=== PATIENT | female | born 1935 | race Caucasian/White ===

== ENCOUNTER 2021-08-23 12:31 | Inpatient (IN) | payer OTHER ==
[2021-08-23] MEDS ORDERED: NA CHLORIDE 0.9% 1,000 ML ONE (13:30)
--- NOTE | 2021-08-23 14:09 | RAD REPORT ---
EXAM DESCRIPTION: CT - Head Brain Wo Cont - 08/23/2021 2:03 pm CLINICAL HISTORY: CONFUSED COMPARISON: No comparisons TECHNIQUE: All CT scans are performed using dose optimization technique as appropriate and may inclu de automated exposure control or mA/KV adjustment according to patient size. FINDINGS: No intracranial hemorrhage, hydrocephalus or extra-axial fluid collection.No areas of brai n edema or evidence of midline shift. Age advanced cerebral atrophy as well as moderate chronic small vessel ischemic changes. Remote right cerebellar infarct. Mild right maxillary sinus thickening. The calvarium is intact. IMPRESSION: No acute intracranial abnormality.
[2021-08-23] MEDS ORDERED: CEFTRIAXONE 1000 MG/VIAL ONE (14:15)
--- NOTE | 2021-08-23 14:28 | RAD REPORT ---
EXAM DESCRIPTION: RAD - Chest Single View - 08/23/2021 2:12 pm CLINICAL HISTORY: CONGESTION COMPARISON: CHEST SINGLE VIEW dated 09/08/2013; CHEST PA AND LAT 2 VIEW dated 01/24/2003 FINDINGS: Lines: None. Lungs: No evidence of edema or pneumonia. Pleural: No significant pleural effusions or pneumothorax. Cardiac: The heart size is within normal limits. Bones: No acute fractures. Other: IMPRESSION: No acute cardiopulmonary disease.
[2021-08-23 16:27] LABS: Absolute Lymphocytes (CBC) 0.3 K/uL (0.7-4.9); Basophils % 0.2 % (0-1.3); Hematocrit 42.3 % (36.0-45.0); Lymphocytes % 6.6 % (15.3-44.8); RBC Red Blood Cell Count 4.96 M/uL (3.86-4.86)
[2021-08-23] MEDS ORDERED: METHYLPREDNISOLONE 125 MG INJ ONE (16:33)
[2021-08-23] MEDS ORDERED: AZITHROMYCIN 500 MG INJ IVPB ONE (16:34)
[2021-08-23 16:46] LABS: Protime INR 1.02
[2021-08-23 16:56] LABS: ALT/SGPT 22 U/L (12-78); AST/SGOT 28 U/L (15-37); Albumin 3.2 g/dL (3.4-5.0); Alkaline Phosphatase 114 U/L (45-117); Amylase 65 U/L (25-115); BUN Blood Urea Nitrogen 17 mg/dL (7-18); Bicarbonate 23 mmol/L (21-32); Bilirubin Direct 0.1 mg/dL (0-0.2); Bilirubin Total 0.3 mg/dL (0.2-1.0); Creatine Phosphokinase 28 U/L (26-192); Glucose Level 172 mg/dL (74-106); Lipase 39 U/L (73-393); Magnesium 2.5 mg/dL (1.8-2.4); NT PRO-BNP 421 pg/mL (<450); Potassium 4.1 mmol/L (3.5-5.1); Sodium Level 145 mmol/L (136-145); Troponin (Emerg Dept Use Only) < 0.02 ng/mL (0.0-0.045)
[2021-08-23 16:59] LABS: CKMB Creatine Kinase MB < 1.0 ng/mL (1.0-3.6)
--- NOTE | 2021-08-23 17:40 | ER ---
Nurse's Notes [facility] Name: Raymond Stern Age: 86 yrs Sex: Female : 1935 Arrival Date: 08/23/2021 Time: 12:36 Bed 5 Private MD: Diagnosis: Altered mental status, unspecified;Dehydration-and COVID 19 Presentation: 08/23 12:49 Chief complaint: Patient's son or daughter states: [facility] stated that around vg1 August 20, patient has not ate or drank much and has also been coughing and weakness. States is unsure if pt has had NVD. [facility] states pt has dementia but states 'it has gotten worse'. States when you ask questions to pt, pt 'will just stare at you'. Coronavirus screen: Vaccine status: Granddaughter is unsure of vaccine status. Ebola Screen: Patient negative for fever greater than or equal to 101.5 degrees Fahrenheit, and additional compatible Ebola Virus Disease symptoms. Initial Sepsis Screen: Does the patient meet any 2 criteria? RR > 20 per min. Altered Mental Status. Yes. Risk Assessment: Do you want to hurt yourself or someone else? Patient reports no desire to harm self or others. Onset of symptoms was August 20, 2021. 12:49 Method Of Arrival: Wheelchair vg1 12:49 Acuity: LOIDA 3 vg1 22:00 No acute neurological deficit is noted. Initial Sepsis Screen: Does the patient have a kc4 suspected source of infection? No. Patient's initial sepsis screen is negative. 22:15 Note Phone report was given to Ju MEDINA. Per RN need to consult ER MD about pts BP. kc4 MD Ortega consulted at this time he does not want to seek out any Measures to change bp. Per MD pts bp stable to go to floor. 23:02 Note House sup notified of MDs decision to admit pt without medicating pt for bp. Pt kc4 stable to go to floor. House sup discussed with floor RN. Pt ready for transport. 23:05 Pre-hospital glucose is not applicable to this patient. [facility] Triage Assessment: 12:57 The onset of the patients symptoms was more than six hours ago. General: Appears in no vg1 apparent distress. slender, Behavior is quiet. Pain: Unable to use pain scale. pt will not answer question. Neuro: Level of Consciousness is awake, lethargic, Oriented to pt was able to state 'July 04 unable to recall year or place. Ip Litigation Paralegal are weak bilaterally Facial symmetry appears normal. 22:00 Neuro: Level of Consciousness is awake, confused, Oriented to pt has hx of dementia . kc4 Ip Litigation Paralegal are weak bilaterally Facial symmetry appears normal, Reports. Historical: - Allergies: 16:43 No Known Allergies; jl7 - Home Meds: 20:57 alendronate 70 mg oral tab 1 tab once wkly [Active]; rivastigmine tartrate 1.5 mg oral kc4 cap 1 cap 2 times per day [Active]; megestrol 20 mg Oral tab 1 tab 2 times per day [Active]; memantine 10 mg oral tab 1 tab 2 times per day [Active]; biotin 10,000 mcg oral cap daily [Active]; montelukast 10 mg oral tab 1 tab once daily [Active]; - PMHx: 12:57 Dementia; Hypertensive disorder; vg1 - PSHx: 12:57 Left Hip; vg1 - Immunization history:: Adult Immunizations family member unsure of vaccination. - Social history:: Smoking status: unknown Patient/guardian denies using alcohol, street drugs, The patient lives with family. - Family history:: not pertinent. Screenin:00 Abuse screen: Denies threats or abuse. Denies injuries from another. Nutritional bp screening: No deficits noted. Tuberculosis screening: No symptoms or risk factors identified. Fall Risk None identified. Assessment: 13:00 VAN Scoring: Arm Drift: Patients demonstrates NO arm weakness. Patient is VAN Negative. bp The patient has not been NPO before screening. The patient is not alert and/or unable to follow commands. The patient does not exhibit slurred or garbled speech. The patient is not exhibiting difficulty speaking. The patient does not exhibit difficulty understanding words. The patient is able to swallow own secretions with no drooling or need for suction. Patient tolerated one teaspoon of water. No drooling, immediate coughing, gurgling, or clearing of the throat was noted. The patient tolerated 90mL of water. No drooling, immediate coughing, gurgling, or clearing of the throat was noted. The patient passed the bedside swallow screening. Oral medications may be given as ordered. Contact Physician for further diet orders. Provider notified of bedside swallow screening results: Zofia Locke MD. T-PA (Activase) Screening: Contraindications: Patient reports onset of signs and symptoms of stroke greater than 6 hours ago: No. General: SEE TRIAGE NOTE. 15:00 Reassessment: PHLEBOTOMY AND NURSING UNABLE TO OBTAIN BLOOD SPECIMEN. MD NOTIFIED. bp Vital Signs: 12:49 BP 191 / 106; Pulse 93; Resp 24; Temp 98.7(O); Pulse Ox 97% on R/A; vg1 15:00 BP 199 / 90; Pulse 89; Resp 22; Pulse Ox 97% ; bp 16:42 BP 178 / 94; Pulse 85; Resp 22; Pulse Ox 99% ; jl7 21:03 BP 194 / 74; Pulse 78; Resp 20; Temp 98.7(O); Pulse Ox 99% on R/A; Pain 0/10; kc4 22:30 BP 194 / 94; Pulse 74; Resp 18; Temp 98.7(O); Pulse Ox 99% on R/A; kc4 NIH Stroke Scale Scores: 13:00 NIHSS Score: 2 bp ED Course: 12:36 Patient arrived in ED. ds1 12:57 Triage completed. vg1 12:57 Arm band placed on. vg1 13:13 Zofia Locke MD is Attending Physician. ma2 13:28 Song Enrique, RN is Primary Nurse. bp 14:03 CT Head Brain wo Cont In Process Unspecified. EDMS 14:04 Patient has correct armband on for positive identification. Placed in gown. Bed in low mh5 position. Call light in reach. Side rails up X2. Warm blanket given. hall monitor on. Pulse ox on. NIBP on. 14:04 EKG done, by ED staff, reviewed by Zofia Locke MD. mh5 14:12 XRAY Chest (1 view) In Process Unspecified. EDMS 14:13 Inserted saline lock: 22 gauge in right forearm, using aseptic technique. jl7 16:33 PTT, Activated Partial Thromb Sent. mh5 16:33 Lipase Sent. mh5 16:33 Creatine Phosphokinase Sent. mh5 16:34 CKMB Creatine Kinase MB Sent. mh5 16:34 Amylase Sent. mh5 16:34 Lactate Sent. mh5 16:34 Procalcitonin Sent. mh5 16:35 Initial lab(s) drawn, by me, sent to lab. 5 17:39 Ace Gavin DO is Hospitalizing Provider. ma2 19:08 Blood Culture Adult (2) Sent. jl7 21:10 Urine Culture Sent. kc4 21:10 COVID-19/FLU A+B/RSV (Document "Date of Onset" if Symptomatic) Sent. kc4 22:00 No provider procedures requiring assistance completed. kc4 23:07 Patient admitted, IV remains in place. kc4 Administered Medications: 16:00 Drug: NS 0.9% 1000 ml Route: IV; Rate: 1 bolus; Site: right forearm; bp 21:12 Follow up: Response: No adverse reaction [facility] 16:00 Drug: Rocephin (cefTRIAXone) 1 grams Route: IV; Rate: calculated rate; Site: right bp forearm; 16:00 Drug: MethylPrednisoLONE 125 mg Route: IVP; Site: right forearm; bp 16:47 Follow up: Response: No adverse reaction bp 21:10 Follow up: Response: No adverse reaction [facility] 16:00 Drug: AZITHromycin 500 mg Route: IVPB; Infused Over: 1 hrs; Site: right forearm; bp 21:10 Follow up: Response: No adverse reaction [facility] Outcome: 17:39 Decision to Hospitalize by Provider. ma2 23:05 Admitted to ICU accompanied by mary, via stretcher, room 7, with chart, Report called [facility] to Robb [facility]INA 23:05 Condition: stable 23:05 Instructed on the need for admit. 23:08 Patient left the ED. [facility] NIH Stroke Scale - NIH Stroke Score Date: 08/23/2021 Time: 13:00 Total Score = 2 1a. Level of Consciousness (LOC) - 0(Alert) 1b. Level of Consciousness (LOC) (Month \\T\\ Age) - 1(One) 1c. LOC Commands (Open \\T\\ Closes Eyes/Repairer Art Objects) - 0(Both) 2. Best Gaze (Lateral Gaze Paresis) - 0(Normal) 3. Visual Field Loss - 0(No visual loss) 4. Facial Palsy - 0(Normal) 5a. Left Arm: Motor (10-second hold) - 0(No drift) 5b. Right Arm: Motor (10-second hold) - 0(No drift) 6a. Left Leg: Motor (5-second hold - always test supine) - 0(No drift) 6b. Right Leg: Motor (5-second hold - always test supine) - 0(No drift) 7. Limb Ataxia (finger/nose \\T\\ heel/macario - test with eyes open) - 0(Absent) 8. Sensory Loss (pinprick arms/legs/face) - 0(Normal) 9. Best Language: Aphasia (description/naming/reading) - 0(No aphasia) 10. Dysarthria (speech clarity - read or repeat words) - 1(Mild to Moderate) 11. Extinction and Inattention (visual/tactile/auditory/spatial/personal) - 0(No abnormality) Initials: bp Signatures: Dispatcher [employer] EDKatty Dempsey dsMarta Jones 5 Shilo Corcoran RN RN elaine7 Song Enrique RN RN bp Zofia Locke MD MD ma2 Padma Bartholomew RN RN vg1 Melinda Villasenor kc4 Corrections: (The following items were deleted from the chart) 21:01 12:57 Home Meds: Unable to obtain; vg1 kc4
--- NOTE | 2021-08-23 17:40 | EDPHYS ---
Physician Documentation [facility] Name: Raymond Stern Age: 86 yrs Sex: Female : 1935 Arrival Date: 08/23/2021 Time: 12:36 Bed 5 Private MD: ED Physician Zofia Locke HPI: 08/23 13:39 This 86 yrs old Female presents to ER via Wheelchair with complaints of ma2 Weakness, Altered Mental Status. 13:39 Onset: The symptoms/episode began/occurred gradually, 3 day(s) ago. Associated signs ma2 and symptoms: Pertinent positives: altered mental status, fever, Pertinent negatives: neck stiffness, paresthesias, seizure, syncope, loss of vision, weakness. Severity of symptoms: At their worst the symptoms were moderate in the emergency department the symptoms are unchanged. The patient has experienced similar episodes in the past. also has cough. Historical: - Allergies: 16:43 No Known Allergies; jl7 - Home Meds: 20:57 alendronate 70 mg oral tab 1 tab once wkly [Active]; rivastigmine tartrate 1.5 mg oral kc4 cap 1 cap 2 times per day [Active]; megestrol 20 mg Oral tab 1 tab 2 times per day [Active]; memantine 10 mg oral tab 1 tab 2 times per day [Active]; biotin 10,000 mcg oral cap daily [Active]; montelukast 10 mg oral tab 1 tab once daily [Active]; - PMHx: 12:57 Dementia; Hypertensive disorder; vg1 - PSHx: 12:57 Left Hip; vg1 - Immunization history:: Adult Immunizations family member unsure of vaccination. - Social history:: Smoking status: unknown Patient/guardian denies using alcohol, street drugs, The patient lives with family. - Family history:: not pertinent. ROS: 13:39 Constitutional: Negative for fever, chills, and weight loss. ma2 13:39 All other systems are negative. Exam: 13:39 Constitutional: This is a well developed, well nourished patient who is awake, alert, ma2 and in no acute distress. Head/Face: Normocephalic, atraumatic. Eyes: Pupils equal round and reactive to light, extra-ocular motions intact. Lids and lashes normal. Conjunctiva and sclera are non-icteric and not injected. Cornea within normal limits. Periorbital areas with no swelling, redness, or edema. ENT: Nares patent. No nasal discharge, no septal abnormalities noted. Tympanic membranes are normal and external auditory canals are clear. Oropharynx with no redness, swelling, or masses, exudates, or evidence of obstruction, uvula midline. Mucous membranes moist. Neck: Trachea midline, no thyromegaly or masses palpated, and no cervical lymphadenopathy. Supple, full range of motion without nuchal rigidity, or vertebral point tenderness. No Meningismus. Chest/axilla: Normal chest wall appearance and motion. Nontender with no deformity. No lesions are appreciated. Cardiovascular: Regular rate and rhythm with a normal S1 and S2. No gallops, murmurs, or rubs. Normal PMI, no JVD. No pulse deficits. Respiratory: Lungs have equal breath sounds bilaterally, clear to auscultation and percussion. No rales, rhonchi or wheezes noted. No increased work of breathing, no retractions or nasal flaring. Abdomen/GI: Soft, non-tender, with normal bowel sounds. No distension or tympany. No guarding or rebound. No evidence of tenderness throughout. Skin: Warm, dry with normal turgor. Normal color with no rashes, no lesions, and no evidence of cellulitis. MS/ Extremity: Pulses equal, no cyanosis. Neurovascular intact. Full, normal range of motion. Neuro: Awake however she is sleepy and confused . Cranial nerves II-XII grossly intact. Motor strength 5/5 in all extremities. Sensory grossly intact. Cerebellar exam normal. Normal gait. Vital Signs: 12:49 BP 191 / 106; Pulse 93; Resp 24; Temp 98.7(O); Pulse Ox 97% on R/A; vg1 15:00 BP 199 / 90; Pulse 89; Resp 22; Pulse Ox 97% ; bp 16:42 BP 178 / 94; Pulse 85; Resp 22; Pulse Ox 99% ; jl7 21:03 BP 194 / 74; Pulse 78; Resp 20; Temp 98.7(O); Pulse Ox 99% on R/A; Pain 0/10; kc4 22:30 BP 194 / 94; Pulse 74; Resp 18; Temp 98.7(O); Pulse Ox 99% on R/A; kc4 NIH Stroke Scale Scores: 13:00 NIHSS Score: 2 bp MDM: 13:13 Patient medically screened. ma2 13:39 Data reviewed: vital signs, nurses notes. ma2 17:38 Counseling: I had a detailed discussion with the patient and/or guardian regarding: the [facility] historical points, exam findings, and any diagnostic results supporting the discharge/admit diagnosis, the presence of at least one elevated blood pressure reading (>120/80) during this emergency department visit, the need for outpatient follow up. Response to treatment: the patient's symptoms have markedly improved after treatment. 08/23 13:13 Order name: Basic Metabolic Panel; Complete Time: 17:38 tn2 08/23 13:13 Order name: CBC with Diff; Complete Time: 20:42 ma2 08/23 13:13 Order name: LFT's; Complete Time: 17:38 ma2 08/23 13:13 Order name: Magnesium; Complete Time: 17:38 tn2 08/23 13:13 Order name: NT PRO-BNP; Complete Time: 17:38 tn2 08/23 13:13 Order name: PT-INR; Complete Time: 17:38 ma2 08/23 13:13 Order name: Troponin (emerg Dept Use Only); Complete Time: 17:38 ma2 08/23 13:36 Order name: Blood Culture Adult (2) tn2 08/23 13:36 Order name: Lactate; Complete Time: 17:38 ma2 08/23 13:13 Order name: XRAY Chest (1 view); Complete Time: 15:19 tn2 08/23 13:36 Order name: Procalcitonin; Complete Time: 17:38 tn2 08/23 13:36 Order name: Urine Microscopic Only; Complete Time: 20:42 ma2 08/23 13:37 Order name: CT Head Brain wo Cont; Complete Time: 15:19 ma2 08/23 14:12 Order name: Creatine Phosphokinase; Complete Time: 17:38 EDMS 08/23 14:12 Order name: CKMB Creatine Kinase MB; Complete Time: 17:38 EDMS 08/23 14:12 Order name: Amylase; Complete Time: 17:38 EDMS 08/23 14:12 Order name: Lipase; Complete Time: 17:38 EDMS 08/23 14:13 Order name: PTT, Activated Partial Thromb; Complete Time: 17:38 EDMS 08/23 19:18 Order name: COVID-19/FLU A+B/RSV (Document "Date of Onset" if Symptomatic); Complete jl7 Time: 22:25 08/23 20:11 Order name: Urine Dipstick-Ancillary; Complete Time: 20:42 EDMS 08/23 20:24 Order name: CBC Smear Scan; Complete Time: 20:42 EDMS 08/23 20:31 Order name: Urine Culture EDSC 08/23 13:13 Order name: EKG; Complete Time: 13:14 ma2 08/23 13:13 Order name: Cardiac monitoring; Complete Time: 13:36 ma2 08/23 13:13 Order name: EKG - Nurse/Tech; Complete Time: 14:04 ma2 08/23 13:13 Order name: IV Saline Lock; Complete Time: 14:06 ma2 08/23 13:13 Order name: Labs collected and sent; Complete Time: 16:47 ma2 08/23 13:13 Order name: O2 Per Protocol; Complete Time: 13:38 ma2 08/23 13:13 Order name: O2 Sat Monitoring; Complete Time: 13:38 ma2 08/23 13:36 Order name: IV Saline Lock - Large Bore; Complete Time: 14:06 ma2 Administered Medications: 16:00 Drug: NS 0.9% 1000 ml Route: IV; Rate: 1 bolus; Site: right forearm; bp 21:12 Follow up: Response: No adverse reaction kc4 16:00 Drug: Rocephin (cefTRIAXone) 1 grams Route: IV; Rate: calculated rate; Site: right bp forearm; 16:00 Drug: MethylPrednisoLONE 125 mg Route: IVP; Site: right forearm; bp 16:47 Follow up: Response: No adverse reaction bp 21:10 Follow up: Response: No adverse reaction kc4 16:00 Drug: AZITHromycin 500 mg Route: IVPB; Infused Over: 1 hrs; Site: right forearm; bp 21:10 Follow up: Response: No adverse reaction kc4 Disposition Summary: 08/23/21 17:39 Hospitalization Ordered Hospitalization Status: Observation ma2 Provider: Ace Gavni Condition: Stable ma2 Problem: new ma2 Symptoms: are unchanged tn2 Bed/Room Type: Standard [facility] Location: Intensive Care Unit(08/23/21 21:55) mw Room Assignment: 7-(08/23/21 21:55) mw Diagnosis - Altered mental status, unspecified ma2 - Dehydration - and COVID 19 ma2 Forms: - Medication Reconciliation Form ma2 - SBAR form ma2 NIH Stroke Scale - NIH Stroke Score Date: 08/23/2021 Time: 13:00 Total Score = 2 1a. Level of Consciousness (LOC) - 0(Alert) 1b. Level of Consciousness (LOC) (Month \\T\\ Age) - 1(One) 1c. LOC Commands (Open \\T\\ Closes Eyes/Job Superintendent) - 0(Both) 2. Best Gaze (Lateral Gaze Paresis) - 0(Normal) 3. Visual Field Loss - 0(No visual loss) 4. Facial Palsy - 0(Normal) 5a. Left Arm: Motor (10-second hold) - 0(No drift) 5b. Right Arm: Motor (10-second hold) - 0(No drift) 6a. Left Leg: Motor (5-second hold - always test supine) - 0(No drift) 6b. Right Leg: Motor (5-second hold - always test supine) - 0(No drift) 7. Limb Ataxia (finger/nose \\T\\ heel/macario - test with eyes open) - 0(Absent) 8. Sensory Loss (pinprick arms/legs/face) - 0(Normal) 9. Best Language: Aphasia (description/naming/reading) - 0(No aphasia) 10. Dysarthria (speech clarity - read or repeat words) - 1(Mild to Moderate) 11. Extinction and Inattention (visual/tactile/auditory/spatial/personal) - 0(No abnormality) Initials: bp Signatures: Dispatcher [employer] EDMS Karina Owens RN Maurice Duarte MD MD rn Leal, Jahala, RN RN jl7 Song Enrique RN RN bp Alzahri, Mohammad, MD MD ma2 Garcia, Victoria, RN RN Melinda Seymour4 Corrections: (The following items were deleted from the chart) 14:12 13:38 AMYLASE, SERUM+C.LAB.BRZ ordered. EDMS EDMS 14:12 13:38 CREATINE PHOSPHOKINASE+C.LAB.BRZ ordered. EDMS EDMS 14:12 13:38 CKMB+C.LAB.BRZ ordered. EDMS EDMS 14:12 13:38 LIPASE+C.LAB.BRZ ordered. EDMS EDMS 14:13 13:38 PTT, ACTIVATED+COAG.LAB.BRZ ordered. EDMS EDMS 21:01 12:57 Home Meds: Unable to obtain; vg1 kc4 21:55 17:39 Telemetry/MedSurg (Inpatient) ma2 mw :55 17:39 ma2 mw
[2021-08-23 20:11] LABS: Urine Blood 2+ (Negative); Urine Glucose Negative (Negative); Urine Protein 1+ (Negative); Urine Specific Gravity >=1.030 (1.005-1.030); Urine pH 5.5 (5.0-7.0)
[2021-08-23 20:24] LABS: Blood Morphology Comment NOTED (NOT SEEN); Ovalocytes 1+; Platelet Estimate ADEQ; Poikilocytosis 1+; White Blood Cell Scan OK (OK)
[2021-08-23 20:30] LABS: Urine Bacteria >50 /HPF (<20); Urine RBC <5 /HPF (NONE SEEN)
[2021-08-23 21:28] LABS: SARS-COV-2 RT PCR POSITIVE (NEGATIVE)
[2021-08-23] MEDS ORDERED: NA CHLORIDE 0.9% 1,000 ML IV SCH (22:19)
[2021-08-23] MEDS ORDERED: ACETAMINOPHEN 500 MG TAB PO PRN (22:19)
[2021-08-24 05:19] LABS: Absolute Lymphocytes (CBC) 0.2 K/uL (0.7-4.9); Basophils % 2.7 % (0-1.3); Lymphocytes % 6.9 % (15.3-44.8); MPV 9.8 fL (7.6-11.3); RBC Red Blood Cell Count 4.61 M/uL (3.86-4.86)
[2021-08-24 05:33] LABS: Potassium 3.9 mmol/L (3.5-5.1)
[2021-08-24] MEDS ORDERED: HYDRALAZINE HCL 20 MG/ML VIAL IV PRN (06:17)
[2021-08-24] MEDS ORDERED: CEFTRIAXONE 1 GM/NS 50 ML 1 GM/50 ML BAG IV SCH (09:00)
[2021-08-24] MEDS ORDERED: WATER FOR INJ,STERILE 10 ML IM PRN (10:42)
--- NOTE | 2021-08-24 10:53 | P.HP ---
Certification for Inpatient Patient admitted to: Inpatient With expected LOS: >2 Midnights Practitioner: I am a practitioner with admitting privileges, knowledge of patient current condition, hospital course, and medical plan of care. Services: Services provided to patient in accordance with Admission requirements found in Title 42 Section 412.3 of the Code of Federal Regulations Patient History Date of Service: 08/24/21 Primary Care Provider: Traci Reason for admission: Uti, delirium History of Present Illness: Patient is an office patient of [employer]. She has a history of dementia. She has not been eating. The patient was brought in by her daughter for worsening delirum. She was found to have a uti and is covid positive. The patient was admitted to the covid unit. She is breathing well. Somewhat confused. Not combative. She is doing well otherwise. Allergies No Known Allergies Allergy (Verified 08/23/21 22:18) Home Medications: Alendronate Sodium [Fosamax] 70 mg PO SEECOM 08/23/21 Biotin 10,000 mcg PO DAILY 08/23/21 Megestrol Acetate 20 mg PO DAILY 08/23/21 Memantine HCl [Namenda] 10 mg PO BID 08/23/21 Montelukast [Singulair] 10 mg PO DAILY 08/23/21 Rivastigmine 1.5 Mg 1 cap PO DAILY 08/23/21 - Past Medical/Surgical History Diabetic: No -: Dementia -: Htn -: Left Hip Surgery - Social History Smoking Status: Never smoker Alcohol use: No CD- Drugs: No Caffeine use: No Place of Residence: Home Review of Systems is unable to be obtained Physical Examination - Vital Signs Temperature: 97 F Blood Pressure: 166/133 Pulse: 100 Respirations: 15 Pulse Ox (%): 99 - Physical Exam General: Alert, In no apparent distress, Delirious HEENT: Atraumatic, PERRLA, Mucous membr. moist/pink, EOMI, Sclerae nonicteric Neck: Supple, 2+ carotid pulse no bruit, No LAD, Without JVD or thyroid abnormality Respiratory: Clear to auscultation bilaterally, Normal air movement Cardiovascular: Regular rate/rhythm, Normal S1 S2 Gastrointestinal: Normal bowel sounds, No tenderness Musculoskeletal: No tenderness Integumentary: No rashes Neurological: Normal gait, Normal speech, Normal strength at 5/5 x4 extr, Normal tone, Normal affect Lymphatics: No axilla or inguinal lymphadenopathy - Studies Laboratory Data (last 24 hrs) 08/23/21 16:11: PT 11.7, INR 1.02, APTT 31.7 08/23/21 16:11: WBC 5.20, Hgb 13.4, Hct 42.3, Plt Count 189 08/23/21 16:11: Sodium 145, Potassium 4.1, BUN 17, Creatinine 0.78, Glucose 172 H, Magnesium 2.5 H, Total Bilirubin 0.3, AST 28, ALT 22, Alkaline Phosphatase 114, Amylase 65, Lipase 39 L 08/23/21 13:36: APTT Cancelled 08/23/21 13:36: Amylase Cancelled, Lipase Cancelled Assessment and Plan - Problems (Diagnosis) (1) UTI (urinary tract infection) Current Visit: Yes Status: Acute Plan: Patient is doing well. no fevers. Normal wbc. Will start her on oral medications, as she pulls out her iv's. Qualifiers: Urinary tract infection type: acute cystitis (2) COVID-19 Current Visit: Yes Status: Acute Plan: Patient is asymptomatic. Will need to see if there is terminal operations manager inflammatory markers. I have had a lot of patients dementia worsen with covid. (3) Dementia Current Visit: Yes Status: Acute Plan: Patient has not been eating well for nearly 6 months. Will give geodon for agitation prn. Will see if we can get her to eat and if she can work with PT to get her to a chair Qualifiers: Dementia type: Alzheimer's Discharge Plan: Home Plan to discharge in: 24 Hours - Advance Directives Does patient have a Living Will: Yes Does patient have a Durable POA for Healthcare: No - Code Status/Comfort Care Code Status Assessed: Yes Code Status: Do Not Attempt Resuscitat Physician Review: Patient Assessed, Agree with Above Assessment and Plan Critical Care: No Time Spent Managing Pts Care (In Minutes): 50
[2021-08-24] MEDS: ZIPRASIDONE MESYLA 20 MG/VIAL IM PRN (11:35)
[2021-08-24] MEDS: MEMANTINE HCL 10 MG TABLET PO SCH (19:15)
[2021-08-24] MEDS: CIPROFLOXACIN HCL 500 MG TAB PO SCH (19:15)
[2021-08-25] MEDS: CIPROFLOXACIN HCL 500 MG TAB PO SCH ×2 (08:15→19:11)
[2021-08-25] MEDS: MEMANTINE HCL 10 MG TABLET PO SCH ×2 (08:15→19:11)
[2021-08-25] MEDS: RIVASTIGMINE TARTRATE 1.5 MG PO SCH (08:16)
--- NOTE | 2021-08-25 11:34 | P.PN ---
Subjective Date of Service: 08/25/21 Primary Care Provider: Traci Chief Complaint: Uti, delirium Subjective: No new changes (patient has intermittent afib.) Review of Systems is unable to be obtained Physical Examination - Vital Signs Temperature: 102 F Blood Pressure: 112/72 Pulse: 102 Respirations: 16 Pulse Ox (%): 96 - Physical Exam General: Alert, In no apparent distress HEENT: Atraumatic, PERRLA, EOMI Neck: Supple, JVD not distended Respiratory: Clear to auscultation bilaterally, Normal air movement Cardiovascular: Regular rate/rhythm, Normal S1 S2 Gastrointestinal: Normal bowel sounds, No tenderness Musculoskeletal: No tenderness Integumentary: No rashes Neurological: Normal speech, Normal tone, Normal affect Lymphatics: No axilla or inguinal lymphadenopathy Assessment & Plan - Problems (Diagnosis) (1) UTI (urinary tract infection) Current Visit: Yes Status: Acute Plan: Patient is doing well. no fevers. Normal wbc. Will start her on oral medications, as she pulls out her iv's. Qualifiers: Urinary tract infection type: acute cystitis (2) COVID-19 Current Visit: Yes Status: Acute Plan: Patient is asymptomatic. Will need to see if there is armament mechanic inflammatory markers. I have had a lot of patients dementia worsen with covid. (3) Dementia Current Visit: Yes Status: Acute Plan: Patient has not been eating well for nearly 6 months. Will give geodon for agitation prn. Will see if we can get her to eat and if she can work with PT to get her to a chair 08/25 Family requesting care home placement. She is becoming more difficult to manage at home. She is not eating well. Which is a problem she has been having for the last 6 months. Qualifiers: Dementia type: Alzheimer's (4) A-fib Current Visit: Yes Status: Acute Plan: Patient has short runs of a fib. will not start her on a beta mary jo. This is as the patient has been refusing to eat and medications. She is a general decline due to dementia. The patient should keep her potassium level above 3. Otherwise no treatment needed. Qualifiers: Atrial fibrillation type: paroxysmal Qualified Code(s): I48.0 - Paroxysmal atrial fibrillation Discharge Plan: Home - Code Status/Comfort Care Code Status Assessed: No Physician Review: Patient Assessed, Agree with Above Assessment and Plan Critical Care: No Time Spent Managing Pts Care (In Minutes): 20
[2021-08-25] MEDS: HYDRALAZINE HCL 20 MG/ML VIAL IV PRN (21:08)
[2021-08-25] MEDS: ZIPRASIDONE MESYLA 20 MG/VIAL IM PRN (23:13)
[2021-08-26] MEDS: HYDRALAZINE HCL 20 MG/ML VIAL IV PRN (05:20)
[2021-08-26] MEDS: MEMANTINE HCL 10 MG TABLET PO SCH ×2 (08:17→20:43)
[2021-08-26] MEDS: CIPROFLOXACIN HCL 500 MG TAB PO SCH (08:17)
[2021-08-26] MEDS: RIVASTIGMINE TARTRATE 1.5 MG PO SCH (08:17)
--- NOTE | 2021-08-26 10:00 | P.PN ---
Subjective Date of Service: 08/26/21 Primary Care Provider: Traci Chief Complaint: Uti, delirium Subjective: No new changes Review of Systems 10-point ROS is otherwise unremarkable Physical Examination - Vital Signs Temperature: 97.9 F Blood Pressure: 148/88 Pulse: 116 Respirations: 16 Pulse Ox (%): 98 - Physical Exam General: Alert, In no apparent distress, Demented HEENT: Atraumatic, PERRLA, EOMI Neck: Supple, JVD not distended Respiratory: Clear to auscultation bilaterally, Normal air movement Cardiovascular: Regular rate/rhythm, Normal S1 S2 Gastrointestinal: Normal bowel sounds, No tenderness Musculoskeletal: No tenderness Integumentary: No rashes Neurological: Normal speech, Normal tone, Normal affect Lymphatics: No axilla or inguinal lymphadenopathy Assessment & Plan - Problems (Diagnosis) (1) UTI (urinary tract infection) Current Visit: Yes Status: Acute Plan: Patient is doing well. no fevers. Normal wbc. Will start her on oral medications, as she pulls out her iv's. 08/27 Cultures negative. Patient is afebrile. will stop her cipro at this time. Qualifiers: Urinary tract infection type: acute cystitis (2) COVID-19 Current Visit: Yes Status: Acute Plan: Patient is asymptomatic. Will need to see if there is halfway inflammatory markers. I have had a lot of patients dementia worsen with covid. (3) Dementia Current Visit: Yes Status: Acute Plan: Patient has not been eating well for nearly 6 months. Will give geodon for agitation prn. Will see if we can get her to eat and if she can work with PT to get her to a chair 08/26 Patient is not eating. She was not eating much at home. Has lost 4lbs since admission. She may be approaching end of life. Her family was going to meet to discuss. Most of the local nursing homes will not take a recently positive covid patient. Qualifiers: Dementia type: Alzheimer's (4) A-fib Current Visit: Yes Status: Acute Plan: Patient has short runs of a fib. will not start her on a beta mary jo. This is as the patient has been refusing to eat and medications. She is a general decline due to dementia. The patient should keep her potassium level above 3. Otherwise no treatment needed. Qualifiers: Atrial fibrillation type: paroxysmal Qualified Code(s): I48.0 - Paroxysmal atrial fibrillation Discharge Plan: Home - Code Status/Comfort Care Code Status Assessed: No Critical Care: No Time Spent Managing Pts Care (In Minutes): 45
[2021-08-26] MEDS ORDERED: LABETALOL 20 MG/4ML SYRINGE IV PRN (11:13)
--- NOTE | 2021-08-26 18:29 | EKG ---
Test Date: 2021-08-24 Test Time: 20:05:42 Contact Lens Blocker And Cutter: ERIC MEASUREMENT RESULTS: Intervals: Rate: 106 IA: 164 QRSD: 110 QT: 364 QTc: 483 [place]: P: 85 IA: 164 QRS: 85 T: 59 INTERPRETIVE STATEMENTS: Sinus tachycardia with premature atrial complexes Incomplete right bundle branch block Nonspecific ST abnormality Abnormal ECG Compared to ECG 09/08/2013 12:50:49 Atrial premature complex(es) now present Incomplete right bundle-branch block now present ST (T wave) deviation now present Sinus rhythm no longer present Electronically Signed On 08-26-21 18:24:03 CLEARANCE CENTER MANAGER by Jeremiah Boswell
--- NOTE | 2021-08-26 18:33 | EKG ---
Test Date: 2021-08-23 Test Time: 13:48:03 Music Publisher: SARAH MEASUREMENT RESULTS: Intervals: Rate: 82 MA: 176 QRSD: 112 QT: 386 QTc: 450 [place]: P: 81 MA: 176 QRS: 92 T: 78 INTERPRETIVE STATEMENTS: Normal sinus rhythm Pulmonary disease pattern Right bundle branch block Septal infarct, age undetermined Abnormal ECG Compared to ECG 09/08/2013 12:50:49 Right bundle-branch block now present Myocardial infarct finding now present Electronically Signed On 08-26-21 18:24:35 SEAL MIXER by Jeremiah Boswell
[2021-08-27 04:41] VITALS: BMI 19.8
[2021-08-27] MEDS: MEMANTINE HCL 10 MG TABLET PO SCH (08:11)
[2021-08-27] MEDS: RIVASTIGMINE TARTRATE 1.5 MG PO SCH (08:11)
[2021-08-27 08:37] VITALS: O2SAT 96
--- NOTE | 2021-08-27 09:09 | P.DS ---
Admission Date: 08/23/21 Discharge Date: 08/27/21 Primary Care Provider: Traci Disposition: HOSPICE-MEDICAL FACILITY Discharge Condition: FAIR Reason for Admission: Uti, delirium - Problems (1) UTI (urinary tract infection) Current Visit: Yes Status: Acute Qualifiers: Urinary tract infection type: acute cystitis (2) COVID-19 Current Visit: Yes Status: Acute (3) Dementia Current Visit: Yes Status: Acute Qualifiers: Dementia type: Alzheimer's (4) A-fib Current Visit: Yes Status: Acute Qualifiers: Atrial fibrillation type: paroxysmal Qualified Code(s): I48.0 - Paroxysmal atrial fibrillation Brief History of Present Illness: Patient is an office patient of [facility]. She has a history of dementia. She has not been eating. The patient was brought in by her daughter for worsening delirum. She was found to have a uti and is covid positive. The patient was admitted to the covid unit. She is breathing well. Somewhat confused. Not combative. She is doing well otherwise. Hospital Course: Patient came with UTI and delirium. The patient did well. However was not eating. Her family all has covid. Are not able to take care of her any longer. She has been declining for over 6months. She is going into hospice. Has lost 5-7 lbs since admission. Will move her to [place] [facility]. Hopefully in 5-10 days she can go home with home hospice. Thank you for allowing me to take part in her care. Vital Signs/Physical Exam: Temp Pulse Resp BP Pulse Ox 98.3 F 97 H 17 123/88 96 08/26/21 20:00 08/27/21 04:00 08/27/21 04:00 08/27/21 04:00 08/27/21 04:00 General: In no apparent distress, Demented HEENT: Atraumatic, PERRLA, EOMI Neck: Supple, JVD not distended Respiratory: Clear to auscultation bilaterally, Normal air movement Cardiovascular: Regular rate/rhythm, Normal S1 S2 Gastrointestinal: Normal bowel sounds, No tenderness Musculoskeletal: No tenderness Integumentary: No rashes Neurological: Normal speech, Normal tone, Normal affect Lymphatics: No axilla or inguinal lymphadenopathy Laboratory Data at Discharge: WBC 3.50 K/uL (4.3-10.9) L D 08/24/21 04:56 Hgb 12.3 g/dL (12.0-15.0) 08/24/21 04:56 Hct 39.0 % (36.0-45.0) 08/24/21 04:56 Plt Count 184 K/uL (152-406) 08/24/21 04:56 PT 11.7 SECONDS (9.5-12.5) 08/23/21 16:11 INR 1.02 08/23/21 16:11 APTT 31.7 SECONDS (24.3-36.9) 08/23/21 16:11 Sodium 145 mmol/L (136-145) 08/24/21 04:56 Potassium 3.9 mmol/L (3.5-5.1) 08/24/21 04:56 BUN 17 mg/dL (7-18) 08/24/21 04:56 Creatinine 0.75 mg/dL (0.55-1.3) 08/24/21 04:56 Glucose 213 mg/dL (74-106) H 08/24/21 04:56 Magnesium 2.5 mg/dL (1.8-2.4) H 08/23/21 16:11 Total Bilirubin 0.3 mg/dL (0.2-1.0) 08/23/21 16:11 AST 28 U/L (15-37) 08/23/21 16:11 ALT 22 U/L (12-78) 08/23/21 16:11 Alkaline Phosphatase 114 U/L (45-117) 08/23/21 16:11 Amylase 65 U/L (25-115) 08/23/21 16:11 Lipase 39 U/L (73-393) L 08/23/21 16:11 Home Medications: Alendronate Sodium [Fosamax] 70 mg PO SEECOM 08/23/21 Biotin 10,000 mcg PO DAILY 08/23/21 Megestrol Acetate 20 mg PO DAILY 08/23/21 Memantine HCl [Namenda] 10 mg PO BID 08/23/21 Montelukast [Singulair] 10 mg PO DAILY 08/23/21 Rivastigmine 1.5 Mg 1 cap PO DAILY 08/23/21 Diet: Regular Activity: Fall precautions Followup: [facility] [Primary Care Provider] - Time spent managing pt's care (in minutes): 30
[2021-08-27 18:20] VITALS: TEMP 98.5
[2021-08-27 18:21] VITALS: BP 162/53
== END 2021-08-27 18:00 | disposition hospice, inpatient (51) | DRG 689 ==
LOC: ER 12:31 → ERHOLD 19:49 → 3RD-ICU 22:05
PROVIDERS: ADMIT Internal Medicine; ATTEND Internal Medicine
DX: N30.00 Acute cystitis without hematuria (principal); U07.1 COVID-19; F05 Delirium due to known physiological condition; I48.0 Paroxysmal atrial fibrillation; G30.9 Alzheimer's disease, unspecified; F02.80 Dementia in other diseases classified elsewhere, unspecified severity, without behavioral disturbance, psychotic disturbance, mood disturbance, and anxiety; E86.0 Dehydration; Z66 Do not resuscitate; Z79.899 Other long term (current) drug therapy
CPT/HCPCS: 0241U; 36415; 70450; 71045; 80048; 80076; 81003; 81015; 82150; 82550; 82553; 82947; 83605; 83690; 83735; 83880; 84145; 84484; 85025; 85610; 85730; 87040; 87086; 87088; 87205; 93005; 96374; 96375; 97161; 97530; 99285; J0360; J0456; J0696; J2930; J3486; J7030